=== PATIENT | female | born 1950 | race Caucasian/White ===

== ENCOUNTER 2019-08-03 15:52 | Emergency (ER) | payer SELFPAY ==
[~2019-08-03] VITALS: Ht 152.4 cm; Wt 48.7 kg
[2019-08-03] MEDS ORDERED: METFORMIN/GLYBURIDE (17:01)
[2019-08-03] MEDS ORDERED: TELM40TA4 PO (17:01)
[2019-08-03] MEDS ORDERED: ACETAMINOPHEN 325MG TABLET PO ONE (21:15)
[2019-08-03 21:37] VITALS: BP 123/82
== END 2019-08-03 21:43 | disposition home or self-care (01) ==
LOC: ER 15:52
DX: Z76.0 Encounter for issue of repeat prescription (principal); I10 Essential (primary) hypertension; E11.9 Type 2 diabetes mellitus without complications
CPT/HCPCS: 99283